=== PATIENT | female | born 1995 | race Two or more races ===

== ENCOUNTER 2020-01-04 06:32 | Inpatient (IN) | payer OTHER ==
[~2020-01-04] VITALS: Ht 167.6 cm; Wt 3.6 kg
[2020-01-04] MEDS ORDERED: PRENATAL TABLE1 EACH PO (07:31)
== END 2020-01-07 15:16 | disposition home or self-care (01) | DRG 788 ==
LOC: LDR 06:32 → SURG-SUITE 06:32 → O/R 19:37 → SURG-SUITE 19:38
PROVIDERS: ADMIT Obstetrics & Gynecology; ATTEND Obstetrics & Gynecology
PROC: 3E0P7VZ Introduction of Hormone into Female Reproductive, Via Natural or Artificial Opening (ICD-10-PCS; 2020-01-04)
PROC: 4A1HXCZ Monitoring of Products of Conception, Cardiac Rate, External Approach (ICD-10-PCS; 2020-01-04)
PROC: 10D00Z1 Extraction of Products of Conception, Low, Open Approach (ICD-10-PCS; principal; 2020-01-04 20:00)
DX: O61.0 Failed medical induction of labor (principal); O48.0 Post-term pregnancy; Z3A.40 40 weeks gestation of pregnancy; Z37.0 Single live birth